=== PATIENT | male | born 1960 | race Caucasian/White ===

== ENCOUNTER 2016-10-26 19:07 | Emergency (ER) | payer OTHER ==
[~2016-10-26] VITALS: Ht 167.6 cm; Wt 81.0 kg
[2016-10-26 19:37] VITALS: Ht 167.6 cm; Wt 81.0 kg
[2016-10-26] MEDS ORDERED: FIORICET PO (20:08)
--- NOTE | 2016-10-26 20:15 | ERD ---
ER Documentation Chief Complaint Date/Time DATE: 10/26/16 TIME: 20:12 Chief Complaint LAMBERT top of LAMBERT since last night. HPI 56-year-old male presents here in emergency department for complaints of headache started last night. Patient states that he has been going through a lot of stress lately, is undergoing a divorce, cannot sleep normally at night because of a lot of stress lately. Patient is complaining of headache, throbbing pain, 4/10 scale, intermittent. Patient did not take any medications of the symptoms. Patient denies any head injury. Patient did not have any vomiting. Patient denies any dizziness. Patient denies any focal weakness numbness or tingling. Patient denies any other symptoms. ROS All systems reviewed and are negative except as per history of present illness. Medications Home Meds Active Scripts Acetamin/Butalbital/Caffeine* (Fioricet*) [id number] Tab, 1 TAB PO Q6H Y for PAIN, #30 TAB Prov:SUZANNE FERNANDEZ NP 10/26/16 Allergies Allergies: Coded Allergies: No Known Allergy (Unverified , 08/25/13) PMhx/Soc History of Surgery: Yes (nose reconstruction) Anesthesia Reaction: No Hx Neurological Disorder: No Hx Respiratory Disorders: No Hx Cardiac Disorders: No Hx Psychiatric Problems: No Hx Miscellaneous Medical Probl: Yes (prostate inflammation) Hx Alcohol Use: No Hx Substance Use: No Hx Tobacco Use: No FmHx Family History: No coronary disease, No diabetes, No other Physical Exam Vitals Vital Signs Date Time Temp Pulse Resp B/P Pulse Ox O2 Delivery O2 Flow Rate FiO2 10/26/16 19:37 98.3 66 18 122/81 97 Physical Exam GENERAL: The patient is well developed and appropriate for usual state of health, in no apparent distress. CHEST: Clear to auscultation bilaterally. There are no rales, wheezes or rhonchi. HEART: Regular rate and rhythm. No murmurs, clicks, rubs or gallops. No S3 or S4. ABDOMEN: Soft, nontender and nondistended. Good bowel sounds. No rebound or guarding. No gross peritonitis. No gross organomegaly or masses. No Larios sign or McBurney point tenderness. BACK: No midline or flank tenderness. EXTREMITIES: Equal pulses bilaterally. There is no peripheral clubbing, cyanosis or edema. No focal swelling or erythema. Full range of motion. Grossly neurovascularly intact. NEURO: Alert and oriented. Cranial nerves 2-12 intact. Motor strength in all 4 extremities with 5/5 strength. Sensation grossly intact. Normal speech and gait. Negative Romberg sign. Negative pronator drift. SKIN: There is no apparent rash or petechia. The skin is warm and dry. HEMATOLOGIC AND LYMPHATIC: There is no evidence of excessive bruising or lymphedema. No gross cervical, axillary, or inguinal lymphadenopathy. Procedures/MDM Medical Decision Making: Patient's headache was like is consistent with tension headache, possible stress related. There is low suspicion for neurological emergencies at this time since patients neurologic exam is normal. Patient did not have any altered level consciousness, vomiting, changes in balance or memory and did not have any head injury. CT scan of the brain not indicated at this time. Patient is given prescriptions for Fioricet, is advised to follow primary care doctor in 2-3 days, is advised to see a job service specialist for evaluation and possible counseling about ongoing stress. Patient was advised to return to emergency department for any worsening symptoms. Departure Diagnosis: Primary Impression: Headache Headache type: tension-type Headache chronicity pattern: acute headache Intractability: not intractable Qualified Code: G44.209 - Acute non intractable tension-type headache Condition: Stable Patient Instructions: Self-Care for Headaches Referrals: FLORENCIO BOOKER MD (PCP) SUZANNE FERNANDEZ NP Oct 26, 2016 20:15
== END 2016-10-26 20:12 | disposition home or self-care (01) ==
LOC: FTE 19:07 → E/R 20:12
DX: G44.209 Tension-type headache, unspecified, not intractable (principal)
CPT/HCPCS: 99283

== ENCOUNTER 2017-01-17 04:05 | Emergency (ER) | payer OTHER ==
[~2017-01-17] VITALS: Ht 167.6 cm; Wt 81.5 kg
[~2017-01-17 04:05] MED LIST: FIORICET PO
[2017-01-17 04:11] VITALS: Ht 167.6 cm; Wt 81.5 kg
[2017-01-17] MEDS ORDERED: morphine 4 MG/ML VIAL IV STA (04:20)
[2017-01-17] MEDS ORDERED: SOD CHLORIDE 0.9% 1,000 ML IV STA (04:20)
[2017-01-17] MEDS ORDERED: ONDANSETRON 4 MG INJ IV STA (04:20)
[2017-01-17 05:14] LABS: ADD SCAN DIFF NO
--- NOTE | 2017-01-17 05:23 | RADRPT ---
PROCEDURE: CT Abdomen and pelvis without contrast. CLINICAL INDICATION: Abdominal pain. TECHNIQUE: CT scan of the abdomen and pelvis was performed on a multi-detector high-resolution CT [facility]. Contiguous axial images were obtained from the lung bases to the ischial tuberosities without intravenous contrast. Coronal and sagittal reformatted images were also obtained. Images were revie wed on the PACS workstation. One or more of the following dose reduction techniques were used: - Automated exposure control. - Adjustment of the mA and/or kV according to patient size. - Use of iterative reconstruction technique. Exam CTD/vol = 11.52 mGy. Total exam DLP = 729.14 mGy-cm. COMPARISON: None. FINDINGS: Evaluation of the lung bases demonstrates minimal bibasilar atelectasis. There is a calcified granul curt within the right lower lobe. Abdomen: The liver is normal in size. There is no focal mass or dilatation of the biliary tree. The gallbladder is not distended. The spleen, pancreas and bilateral adrenal glands are within normal li mits. Bilateral kidneys are normal in size with no contour deforming mass identified. There is no ra diopaque renal or ureteral calculus identified. There is no hydronephrosis or hydroureter. There is no retroperitoneal adenopathy. The abdominal aorta is of normal caliber. There are scattered diverticuli within the descending and sigmoid colon with mild thickening and str anding at the distal descending colon. There is no bowel obstruction or free air. A normal appendix is identified. There is no ascites. Pelvis: The bladder is unremarkable. The prostate and seminal vesicles are within normal limits. The re is no significant pelvic adenopathy or free fluid. Evaluation of the osseous structures demonstrates no suspicious lytic or blastic lesion. There are d efects of bilateral pars interarticularis of L5 with grade 1 anterolisthesis of L5 on S1 measuring 4 mm in AP diameter. IMPRESSION: Scattered colonic diverticuli with mild diverticulitis of the distal descending colon. Bilateral pars defects of L5 with grade 1 anterolisthesis of L5 on S1. .Joe Bolanos MD, Date Time Electronically viewed and signed by .Joe Bolanos MD, on 01/17/2017 05:24 .T/
[2017-01-17 05:29] LABS: BASOPHILS % 0.5 % (0.0-2.0); EOSINOPHILS # 0.2 10^3/ul (0.0-0.5); EOSINOPHILS % 1.8 % (0.0-7.0); HEMATOCRIT 40.7 % (42.0-52.0); LYMPHOCYTES # 3.1 10^3/ul (0.8-2.9); LYMPHOCYTES % 36.2 % (15.0-51.0); MEAN CORPUSCULAR HEMOGLOBIN 32.1 pg (29.0-33.0); MEAN CORPUSCULAR HGB CONC 34.4 g/dl (32.0-37.0); MEAN CORPUSCULAR VOLUME 93.3 fl (82.0-101.0); MEAN PLATELET VOLUME 10.9 fl (7.4-10.4); MONOCYTE # 0.6 10^3/ul (0.3-0.9); MONOCYTES % 7.5 % (0.0-11.0); NEUTROPHIL # 4.6 10^3/ul (1.6-7.5); NEUTROPHILS % 53.9 % (39.0-77.0); PLATELET COUNT 217 10^3/UL (140-415); RED BLOOD COUNT 4.36 10^6/ul (4.70-6.10); WHITE BLOOD COUNT 8.5 10^3/ul (4.8-10.8)
[2017-01-17 05:30] LABS: POTASSIUM 3.5 mmol/L (3.5-5.1)
[2017-01-17 05:32] LABS: ALBUMIN/GLOBULIN RATIO 1.11; BILIRUBIN,INDIRECT 0.4 mg/dl (0-1.1); BILIRUBIN,TOTAL 0.4 mg/dl (0.2-1.3); CREATININE 0.78 mg/dl (0.61-1.24); TOTAL PROTEIN 7.6 g/dl (6.1-8.1)
[2017-01-17] MEDS ORDERED: CIPR500T4 PO (05:32)
[2017-01-17] MEDS ORDERED: METR500T14 PO (05:32)
[2017-01-17] MEDS ORDERED: TRAM50TA2 PO (05:32)
[2017-01-17 05:33] LABS: CALCIUM 8.9 mg/dl (8.4-10.2)
--- NOTE | 2017-01-17 05:48 | ERD ---
ER Documentation Chief Complaint Date/Time DATE: 01/17/17 TIME: 05:47 Chief Complaint LLQ ABD STARTED THIS AM HPI This is a very pleasant 56-year-old male with left lower quadrant abdominal pain started this morning. Pain is mild to moderate intensity. He said 2-3 loose stools over the past day. Pain is nonradiating. No blood in stool. No blood in vomit. No other current complaints. ROS All systems reviewed and are negative except as per history of present illness. Medications Home Meds Active Scripts Tramadol HCl (Tramadol HCl) 50 Mg Tablet, 50 MG PO Q6 Y for PAIN, #10 TAB Prov:MAKAYLA WOOTEN S. 01/17/17 Metronidazole (Flagyl) 500 Mg Tab, 500 MG PO Q8 for 7 Days, TAB Prov:MAKAYLA WOOTEN S. 01/17/17 Ciprofloxacin Hcl* (Ciprofloxacin Hcl*) 500 Mg Tablet, 500 MG PO BID for 7 Days , TAB Prov:MAKAYLA WOOTEN S. 01/17/17 Acetamin/Butalbital/Caffeine* (Fioricet*) [id number] Tab, 1 TAB PO Q6H Y for PAIN, #30 TAB Prov:SUZANNE FERNANDEZ NP 10/26/16 Allergies Allergies: Coded Allergies: No Known Allergy (Unverified , 08/25/13) PMhx/Soc History of Surgery: Yes (nose reconstruction) Anesthesia Reaction: No Hx Neurological Disorder: No Hx Respiratory Disorders: No Hx Cardiac Disorders: No Hx Psychiatric Problems: No Hx Miscellaneous Medical Probl: Yes (prostate inflammation) Hx Alcohol Use: No Hx Substance Use: No Hx Tobacco Use: No Smoking Status: Never smoker Physical Exam Vitals Vital Signs Date Time Temp Pulse Resp B/P Pulse Ox O2 Delivery O2 Flow Rate FiO2 01/17/17 04:11 96.7 54 20 117/72 95 Physical Exam Const: [] Head: Atraumatic Eyes: Normal Conjunctiva ENT: Normal External Ears, Nose and Mouth. Neck: Full range of motion..~ No meningismus. Resp: Clear to auscultation bilaterally Cardio: Regular rate and rhythm, no murmurs Abd: Soft, non tender, non distended. Normal bowel sounds Skin: No petechiae or rashes Back: No midline or flank tenderness Ext: No cyanosis, or edema Neur: Awake and alert Psych: Normal Mood and Affect Result Diagram: 01/17/17 0455 01/17/17 0455 Results 24 hrs Laboratory Tests Test 01/17/17 04:55 White Blood Count 8.510^3/ul Red Blood Count 4.3610^6/ul Hemoglobin 14.0g/dl Hematocrit 40.7% Mean Corpuscular Volume 93.3fl Mean Corpuscular Hemoglobin 32.1pg Mean Corpuscular Hemoglobin Concent 34.4g/dl Red Cell Distribution Width 12.0% Platelet Count 83096^3/UL Mean Platelet Volume 10.9fl Neutrophils % 53.9% Lymphocytes % 36.2% Monocytes % 7.5% Eosinophils % 1.8% Basophils % 0.5% Nucleated Red Blood Cells % 0.0/100WBC Neutrophils # 4.610^3/ul Lymphocytes # 3.110^3/ul Monocytes # 0.610^3/ul Eosinophils # 0.210^3/ul Basophils # 0.010^3/ul Nucleated Red Blood Cells # 0.010^3/ul Sodium Level 140mmol/L Potassium Level 3.5mmol/L Chloride Level 105mmol/L Carbon Dioxide Level 25mmol/L Anion Gap 14 Blood Urea Nitrogen 13mg/dl Creatinine 0.78mg/dl Glucose Level 102mg/dl Calcium Level 8.9mg/dl Total Bilirubin 0.4mg/dl Direct Bilirubin 0.00mg/dl Indirect Bilirubin 0.4mg/dl Aspartate Amino Transf (AST/SGOT) 25IU/L Alanine Aminotransferase (ALT/SGPT) 32IU/L Alkaline Phosphatase 109IU/L Total Protein 7.6g/dl Albumin 4.0g/dl Globulin 3.60g/dl Albumin/Globulin Ratio 1.11 Lipase 76U/L Current Medications Medications (Trade) Dose Ordered Sig/[place] Route PRN Reason Start Time Stop Time Status Last Admin Dose Admin Sodium Chloride (NS) 1,000 ml @ 1,000 mls/hr Q1H STAT IV 01/17/17 04:20 01/17/17 05:19 DC Morphine Sulfate (morphine) 4 mg ONCE STAT IV 01/17/17 04:20 01/17/17 04:24 DC Ondansetron HCl (Zofran Inj) 4 mg ONCE STAT IV 01/17/17 04:20 01/17/17 04:24 DC Procedures/MDM Medical decision-makin mL very early mild diverticulitis. At this point is clinically stable for outpatient management. Started on Cipro and Flagyl along with tramadol for pain. Advised to return here in 8 hours for serial abdominal exams which he agrees. No evidence of surgical process in abdomen with serial negative benign abdominal examinations Departure Diagnosis: Primary Impression: Abdominal pain Abdominal location: left lower quadrant Qualified Code: R10.32 - Left lower quadrant pain Additional Impression: Diverticulitis Diverticulitis site: unspecified part of intestinal tract Diverticulitis bleeding: without bleeding Diverticulitis complication: without perforation or abscess Qualified Code: K57.92 - Diverticulitis of intestine without perforation or abscess without bleeding, unspecified part of intestinal tract Condition: Stable Patient Instructions: Diverticulitis MAKAYLA WOOTEN Jan 17, 2017 05:48
[2017-01-17 05:51] VITALS: BP 122/78; PULSE 62; RESP 20; TEMP 97.2
[2017-01-17 06:39] LABS: ADD UMIC NO; URINE BILIRUBIN (Dip) NEGATIVE (NEGATIVE); URINE BLOOD (Dip) NEGATIVE (NEGATIVE); URINE COLOR LT. YELLOW (YELLOW); URINE GLUCOSE (Dip) NEGATIVE (NEGATIVE); URINE KETONES (Dip) NEGATIVE (NEGATIVE); URINE LEUKOCYTE ESTERASE (Dip) NEGATIVE (NEGATIVE); URINE NITRITE (Dip) NEGATIVE (NEGATIVE); URINE TOTAL PROTEIN (Dip) NEGATIVE (NEGATIVE); URINE UROBILINOGEN (Dip) 0.2 E.U./dL (0.1-1.0)
== END 2017-01-17 06:09 | disposition home or self-care (01) ==
LOC: E/R 04:05
DX: R10.32 Left lower quadrant pain (principal); K57.92 Diverticulitis of intestine, part unspecified, without perforation or abscess without bleeding
CPT/HCPCS: 36415; 74176; 80053; 81003; 83690; 85025; J7030; Z7502